=== PATIENT | female | born 1995 | race Two or more races ===

== ENCOUNTER 2025-06-01 15:31 | Emergency (ER) | payer MEDICAID, SELFPAY ==
[2025-06-01 16:03] VITALS: BP 108/72; PULSE 92; RESP 18; TEMP 36.8; O2SAT 99; BMI 28.1
--- NOTE | 2025-06-01 16:10 | XR_ITS ---
EXAMINATION: age complete TECHNIQUE: Complete transabdominal sonographic images pelvis Date and time: June 01, 2025, 1655 hours INDICATIONS: Right-sided pelvic pain today FINDINGS: Viable intrauterine gestation in breech presentation Cardiac motion 157 bpm Placenta anterior fundal grade 1 Umbilical cord insertion 3 vessel seen Amniotic fluid index 12.9 cm Cervix 4.7 cm Right ovary 2.9 cm arterial flow Left ovary obscured by bowel gas Estimated gestational age 17 weeks 3 days Estimated weight 198 g bladder kidneys stomach spine seen IMPRESSION: Viable intrauterine gestation in breech presentation
--- NOTE | 2025-06-01 16:11 | PD.EDRME ---
Rapid Medical Screening Exam E Arrival date/time: 06/01/25 15:31 This is a 30-year-old female that comes into the emergency room with complaints of abdominal pain. Patient states she is approximately 17 weeks . Patient states her last menstrual period was approximately February 26. Patient states she is a 5 para 4. patient denies vaginal bleeding. I have greeted and performed a focused initial assessment of this patient. Initial appropriate labs ordered at this time. A comprehensive ED assessment and evaluation of the patient and analysis of all test and completion of medical decision making process will be conducted by additional ED provider. Chief Complaint: OB/Uterine Contractions Time Seen by Provider: 06/01/25 16:01 Vital signs: Vital Signs Temperature 98.2 F 06/01/25 16:03 Pulse Rate 92 06/01/25 16:03 Respiratory Rate 18 06/01/25 16:03 Blood Pressure 108/72 06/01/25 16:03 Pulse Oximetry (%) 99 06/01/25 16:03 Oxygen Delivery Method Room Air 06/01/25 16:03 Exam: Skin warm and dry, alert and oriented, breathing even and unlabored Clinical Impression: Abdominal pain
[2025-06-01 16:30] LABS: Basophils # (Auto) 0.0 Thou/mm3 (0.0-0.2); Basophils % (Auto) 0 % (0-2.5); Eosinophils # (Auto) 0.0 Thou/mm3 (0.0-0.5); Eosinophils % (Auto) 0 % (0-10); Hematocrit 31.2 % (36.0-46.0); Hemoglobin 11.1 g/dL (12.0-16.0); Immature Granulocytes Auto 0.05 Thou/mm3 (0.00-0.00); Lymphocytes # (Auto) 2.3 Thou/mm3 (1.0-4.8); Lymphocytes % (Auto) 21 % (10-50); Mean Corpuscular HGB Conc 35.6 g/dl (31.0-37.0); Mean Corpuscular Hemoglobin 31.2 pg (25.0-35.0); Mean Corpuscular Volume 88 fL (80-100); Monocytes # (Auto) 0.9 Thou/mm3 (0.0-0.8); Monocytes % (Auto) 8 % (0-12); Neutrophils # (Auto) 7.6 Thou/mm3 (1.8-7.7); Neutrophils % (Auto) 70 % (37-80); Nucleated Red Blood Cell # 0.00 Thou/mm3 (0.00-0.00); Nucleated Red Blood Cell % 0 /100 WBC (0); Platelet Count 337 Thou/mm3 (140-440); RDW Standard Deviation 39.7 fL (36.4-46.3); Red Blood Count 3.56 Miln/mm3 (4.00-5.20); White Blood Count 10.9 Thou/mm3 (3.6-11.0)
[2025-06-01 16:45] LABS: Collection Type, Urine Voided
[2025-06-01 16:56] LABS: Bacteria,Urine Rare; Bilirubin,Urine Negative (Negative); Blood,Urine 1+ (Negative); Clarity,Urine Hazy (Clear/Hazy); Color,Urine Yellow (Lt Yel-Yel); Culture Indicated,Urine Not Indicated; Glucose, Urine Negative (Negative); Ketones,Urine 2+ (Negative); Leukocyte Esterase,Urine Negative (Negative); Nitrite,Urine Negative (Negative); PH,Urine 6.5 (5.0-7.0); Protein,Urine Trace (Neg - Trace); RBC,Urine 16 /hpf (0-3); Specific Gravity,Urine 1.023 (1.001-1.035); Squamous Epithelial Cell,Urine 4 /hpf (0-5); Urobilinogen,Urine Negative mg/dL (0.0-1.0); WBC,Urine 1 /hpf (0-5)
[2025-06-01 17:46] LABS: Alanine Aminotransferase 11 U/L (10-49); Albumin, Serum 4.3 gm/dL (3.5-5.0); Albumin/Globulin Ratio 1.6 (1.2-2.2); Alkaline Phosphatase 53 U/L (46-116); Anion Gap 9 (7-16); Aspartate Amino Transferase 18 U/L (0-34); BUN/Creatinine Ratio 10 Ratio (12-20); Bilirubin,Total 0.5 mg/dL (0.3-1.2); Blood Urea Nitrogen < 5 mg/dL (9-23); Calcium 9.1 mg/dL (8.3-10.6); Calcium (Corrected) 9.1 mg/dL (8.5-10.1); Carbon Dioxide 23.9 mMol/L (20.0-31.0); Chloride 105 mMol/L (98-107); Creatinine (Component) 0.5 mg/dL (0.6-1.3); Estimated Creatinine Clearance 121.4 mL/min (>60); Globulin 2.7 gm/dL (2.3-3.5); Glucose 92 mg/dL (74-106); Lipase 24 U/L (12-53); Osmolality,Calculated 272 (275-295); Potassium 3.4 mMol/L (3.4-5.1); Sodium 138 mMol/L (136-145); Total Protein 7.0 gm/dL (5.7-8.2); eGFR > 60 See Note
--- NOTE | 2025-06-01 19:43 | PD.EDADULT ---
ED General RME/HPI General Chief complaint: OB/Uterine Contractions Stated complaint: 17 weeks OB, abdominal pain Time Seen by Provider: 06/01/25 16:01 Arrival date/time: 06/01/25 15:31 CC: Abdominal pain HPI onset this morning bilateral low abdomen, stating that it wraps around from the side to the umbilicus no prior history of similar in the patient is a G5, P4 at stated 17 weeks. No other complaints including vaginal bleeding vaginal discharge painful urination or bloody urination. Denies nausea or vomiting. RME / HPI RME / HPI narrative: 06/01/25 15:31 This is a 30-year-old female that comes into the emergency room with complaints of abdominal pain. Patient states she is approximately 17 weeks . Patient states her last menstrual period was approximately February 26. Patient states she is a 5 para 4. patient denies vaginal bleeding. I have greeted and performed a focused initial assessment of this patient. Initial appropriate labs ordered at this time. A comprehensive ED assessment and evaluation of the patient and analysis of all test and completion of medical decision making process will be conducted by additional ED provider. Exam: Skin warm and dry, alert and oriented, breathing even and unlabored Impression: Abdominal pain Related Data Allergies Allergy/AdvReac Type Severity Reaction Status Date / Time No Known Drug Allergies Allergy Verified 06/01/25 15:38 Review of Systems Review of Systems Narrative Review of Systems: GEN: No fever, no chills, no weight loss EYES: No discharge, no visual changes, no pain HEENT: No ear pain, no congestion, no sore throat PULM: No shortness of breath, no cough, no congestion CV: No chest pain, no dyspnea on exertion, no palpitations GI: No nausea, no vomiting, no diarrhea, + pain, no constipation : No frequency, no urgency, no dysuria MUSC/SKEL: No joint pain, no back pain SKIN: No rash PSYCH: No hallucinations, no depression HEME/LYMPH: No easy bleeding or bruising tendencies NEURO: No weakness, no headache Past Medical History Social History SMOKING STATUS: Never smoker ED Exam Narrative Physical exam: [General: Not in any acute distress Head normocephalic HEENT: Within acceptable limits Neck is supple nontender Chest equal chest rise nontender to palpation Respiratory: Clear to auscultation no wheezes crackles or rubs CV: Rate rhythm is regular no murmurs rubs or clicks Abdomen mildly distended, secondary to uterus is palpable. The patient has subtle pain in bilateral flanks that wraparound to the umbilicus. No erythema edema no upper abdomen pain. No rebound tenderness Back: No CVA tenderness no spinous process tenderness from cervical spine thoracic and lumbar spine Skin: Intact no petechiae rash induration ulceration or crepitus Extremities: Moving all extremity against resistance cap refill less than 2 seconds neurosensory intact Neuro: Awake alert oriented x3 Glascow coma 15 no focal deficits] Course Course Course Narrative: I suspect this patient has round ligament pain as the vital signs are completely stable the patient is not in any acute distress we will discharge her home where she can take Tylenol Quality Measures none Orders Category Date Time Status US OB >= 14 wk fetus add gest Stat Exams 06/01/25 16:10 Completed Beta HCG,Quantitative Stat Lab 06/01/25 16:22 Completed CBC Stat Lab 06/01/25 16:22 Completed Comprehensive Metabolic Panel Stat Lab 06/01/25 16:22 Completed Lipase Stat Lab 06/01/25 16:22 Completed Urinalysis, C/S if Indicated Stat Lab 06/01/25 16:35 Completed Vital Signs Vital signs: Vital Signs Temperature 98.2 F 06/01/25 16:03 Pulse Rate 92 06/01/25 16:03 Respiratory Rate 18 06/01/25 16:03 Blood Pressure 108/72 06/01/25 16:03 Pulse Oximetry (%) 99 06/01/25 16:03 Oxygen Delivery Method Room Air 06/01/25 16:03 Discharge Plan Plan Patient Disposition: HOME (Self Care) Patient condition on transfer: Stable Prescriptions/Referrals Referrals: No Primary/Family,Physician [Primary Care Provider] - In 1 week Abiola Khanna MD [Physician, [employer]] - In 1 week Problem List Clinical Impression: , Pain of round ligament Patient/Caregiver Discharge Instructions Other Activity Instructions:: Take Tylenol for the pain follow-up with your [employer]. Education Materials: Preg 2nd Trimester Print Language: Luxembourger Stand Alone Forms: Yaima Award Info., Patient Portal Info Letter PA/LINK TRAINER MAINTENANCE WORKER Supervising Physician PA/LINK TRAINER MAINTENANCE WORKER Supervising Physician: Mukesh ANG Clinical Information Provided by: patient Medical Records reviewed [facility] Meds/Rx considered, not ordered None Labs/Rad/Tests considered, not ordered None Chronic Illness/Social Conditions Explain: EKG EKG not done Labs Labs: interpreted by me Lab(s) Interpretation(s): CBC shows no leukocytosis and H&H of 11.1 and 31.2 respectively no thrombocytopenia. CMP shows no significant electrolyte imbalances renal impairment transaminitis or T. bili elevation Lipase is within acceptable limits Beta-hCG at 23,192. Urine 1+ blood 2+ ketones 16 RBCs no bacteria. Imaging Imaging interpretation: interpreted by me Imaging Interpretation(s): Ultrasound shows a single IUP at 17 weeks 3 days with a heart rate of 198. Diagnosis Differential Diagnosis ED Complaint MDM: SAB ectopic round ligament pain
== END 2025-06-01 19:59 | disposition home or self-care (01) ==
PROVIDERS: Nurse Practitioner Family; Emergency Provider Emergency Medicine
DX: O26.892 Other specified pregnancy related conditions, second trimester (principal); Z3A.17 17 weeks gestation of pregnancy
CPT/HCPCS: 36415; 76810; 80053; 81001; 83690; 84702; 85025; 99283